=== PATIENT | female | born 1965 | race Native Hawaiian/Other Pacific Islander ===

== ENCOUNTER 2017-05-16 12:09 | Outpatient (CLI) | payer OTHER ==
[~2017-05-16 12:09] MED LIST: CARAFATE1 GM/10 ML PO; CLARITIN10 MG OR; EXCEDRIN MIGRAINE OR; FLEXERIL5 MG PO; FLUTICASONE50 MCG; FURO20TA67 PO; HYDR-2748 PO; HYDROXYZ HCL50 MG OR; IMITREX100 MG PO; OMEP40CA PO; PEPCID40 MG OR; PRED20TA27 PO; PROAIR HFA IN; PROMETHAZINE25 MG OR; ROPINIROLE0.5 MG OR; TRIA0.1C5 TOP; ULTRAM50 MG OR; VOLTAREN TOP; ZOLP10TA2 PO
== END 2017-05-16 19:34 | disposition home or self-care (01) ==
LOC: RAD 12:09
DX: M25.561 Pain in right knee (principal)

== ENCOUNTER 2021-12-09 09:15 | Outpatient (CLI) | payer OTHER | END 2021-12-09 20:27 | disposition home or self-care (01) | LOC: RAD 09:15 | PROVIDERS: ATTEND Family Medicine | DX: M25.562 Pain in left knee (principal) ==